=== PATIENT | male | born 1970 | race Caucasian/White ===

== ENCOUNTER 2021-05-19 01:42 | Inpatient (IN) | payer OTHER ==
[~2021-05-19] VITALS: Ht 172.7 cm; Wt 63.5 kg
[2021-05-19] VITALS (8 sets, daily range): BP systolic 108–142; BP diastolic 63–77
[~2021-05-19 01:42] MED LIST: DAYPRO600 M1 PO; MEDROL DOSEPAK4 MG PO; PRILOSEC20 MG PO; ROBAXIN750 MG PO; VICODIN 500 MG-1 TAB PO
[2021-05-19 03:15] LABS: BASO % 0.5 % (0.0-1.0); HEMATOCRIT 45.9 % (42.0-52.0); LYMPH # 0.5 10*3/uL (1.3-4.4); LYMPH % 11.9 % (27.0-41.0); MEAN CORPUSCULAR HGB 29.6 pg (27.0-31.0); MEAN CORPUSCULAR HGB CONC 34.4 g/dl (33.0-37.0); MEAN PLATELET VOLUME 9.9 fl (9.6-12.3); MONO # 0.3 10*3/uL (0.1-1.0); MONO % 6.3 % (3.0-9.0); NEUT # 3.4 10*3/uL (2.3-7.9); NEUT % 80.1 % (47.0-73.0); PLATELET COUNT AUTOMATED 174 10*3/uL (130-400); RED BLOOD COUNT 5.34 10*6/uL (4.50-5.90); RED CELL DISTRI WIDTH 11.4 % (0-14.5); WHITE BLOOD COUNT 4.3 10*3/uL (4.8-10.8)
[2021-05-19 03:33] LABS: ALBUMIN 2.6 gm/dl (3.1-4.5); ALKALINE PHOSPHATASE 95 U/L (45-117); BUN 18 mg/dl (7-24); CHLORIDE 96 mmol/L (98-107); CPK 33 U/L (39-308); CREATININE 1.13 mg/dL (0.70-1.30); LDH 202 U/L (87-241); POTASSIUM 3.6 mmol/L (3.5-5.1); SGOT/AST 47 IU/L (3-35); SGPT/ALT 107 U/L (12-78); SODIUM 132 mmol/L (136-145)
[2021-05-19 03:34] LABS: TROPONIN I < 0.015 ng/ml (<0.045)
[2021-05-19] MEDS ORDERED: DECADRON6 M1 PO ×2 (10:53)
== END 2021-05-19 20:59 | disposition home or self-care (01) | DRG 177 ==
LOC: ED 01:42 → EDHOLD 05:18
PROVIDERS: Emergency Medicine; ADMIT Internal Medicine; ATTEND Internal Medicine
DX: U07.1 COVID-19 (principal); J12.82 Pneumonia due to coronavirus disease 2019; J96.01 Acute respiratory failure with hypoxia; E87.1 Hypo-osmolality and hyponatremia; E44.0 Moderate protein-calorie malnutrition; R74.01 Elevation of levels of liver transaminase levels; Z87.891 Personal history of nicotine dependence; Z79.899 Other long term (current) drug therapy

== ENCOUNTER 2021-05-23 14:49 | Emergency (ER) | payer SELFPAY ==
[~2021-05-23 14:49] MED LIST changes: +DECADRON6 M1 PO
== END 2021-05-23 18:12 | disposition left against medical advice (07) ==
LOC: ED 14:49
DX: R11.0 Nausea (principal); R53.83 Other fatigue; Z53.21 Procedure and treatment not carried out due to patient leaving prior to being seen by health care provider

== ENCOUNTER 2021-05-25 16:25 | Emergency (ER) | payer SELFPAY ==
[~2021-05-25] VITALS: Ht 172.7 cm; Wt 72.6 kg
[2021-05-25 17:24] LABS: HEMATOCRIT 51.3 % (42.0-52.0); MEAN CELL VOLUME 83.3 fl (80.0-94.0); MEAN CORPUSCULAR HGB 29.2 pg (27.0-31.0); MEAN CORPUSCULAR HGB CONC 35.1 g/dl (33.0-37.0); MEAN PLATELET VOLUME 8.8 fl (9.6-12.3); PLATELET COUNT AUTOMATED 473 10*3/uL (130-400); RED BLOOD COUNT 6.16 10*6/uL (4.50-5.90); RED CELL DISTRI WIDTH 11.8 % (0-14.5); WHITE BLOOD COUNT 6.4 10*3/uL (4.8-10.8)
[2021-05-25 17:37] LABS: ACT PARTIAL THROMBO TIME 27.2 SECONDS (20.0-32.1)
[2021-05-25 17:40] LABS: ALBUMIN 2.8 gm/dl (3.1-4.5); ALKALINE PHOSPHATASE 119 U/L (45-117); BUN 12 mg/dl (7-24); CHLORIDE 104 mmol/L (98-107); CREATININE 0.66 mg/dL (0.70-1.30); LIPASE 118 U/L (73-393); POTASSIUM 3.5 mmol/L (3.5-5.1); SGOT/AST 12 IU/L (3-35); SGPT/ALT 81 U/L (12-78); SODIUM 136 mmol/L (136-145); TOTAL PROTEIN 7.9 gm/dL (6.4-8.2); TROPONIN I < 0.015 ng/ml (<0.045)
[2021-05-25 17:45] LABS: ATYPICAL LYMPHS 2 % (0-0); TOTAL CELLS COUNTED 100 #CELLS
[2021-05-25 17:46] LABS: BURR CELLS FEW; PLATELET SUFFICIENCY HIGH (NORMAL)
[2021-05-25 17:47] LABS: POLYCHROMASIA SLIGHT
== END 2021-05-25 21:03 | disposition home or self-care (01) ==
LOC: ED 16:25
PROVIDERS: Emergency Medicine
DX: U07.1 COVID-19 (principal); J12.82 Pneumonia due to coronavirus disease 2019; E88.09 Other disorders of plasma-protein metabolism, not elsewhere classified; R79.89 Other specified abnormal findings of blood chemistry

== ENCOUNTER 2021-05-26 19:16 | Inpatient (IN) | payer SELFPAY ==
[~2021-05-26] VITALS: Ht 172.7 cm; Wt 66.0 kg
[2021-05-26] VITALS: BP 134/68
[2021-05-26 19:16] VITALS: BP 137/93
[2021-05-26 19:47] LABS: BASO % 0.5 % (0.0-1.0); EOS % 0.4 % (1.0-4.0); HEMATOCRIT 53.6 % (42.0-52.0); LYMPH # 0.8 10*3/uL (1.3-4.4); LYMPH % 10.4 % (27.0-41.0); MEAN CELL VOLUME 84.1 fl (80.0-94.0); MEAN CORPUSCULAR HGB 29.4 pg (27.0-31.0); MEAN CORPUSCULAR HGB CONC 34.9 g/dl (33.0-37.0); MEAN PLATELET VOLUME 8.9 fl (9.6-12.3); MONO # 0.6 10*3/uL (0.1-1.0); MONO % 8.1 % (3.0-9.0); NEUT # 5.9 10*3/uL (2.3-7.9); NEUT % 78.4 % (47.0-73.0); PLATELET COUNT AUTOMATED 475 10*3/uL (130-400); RED BLOOD COUNT 6.37 10*6/uL (4.50-5.90); WHITE BLOOD COUNT 7.6 10*3/uL (4.8-10.8)
[2021-05-26 19:58] LABS: BUN 21 mg/dl (7-24); CHLORIDE 104 mmol/L (98-107); CREATININE 0.81 mg/dL (0.70-1.30); POTASSIUM 3.9 mmol/L (3.5-5.1); SODIUM 137 mmol/L (136-145)
[2021-05-26 20:00] VITALS: BP 134/68
[2021-05-26 22:31] LABS: BILIRUBIN Negative (Negative); BLOOD Negative (Negative); CLARITY Clear (Clear); COLOR Yellow (Yellow); GLUCOSE Negative (Negative); KETONE 1+ (Negative); LEUKO ESTERASE Negative (Negative); NITRITE Negative (Negative); PH 5.5 (4.5-8.0); SPECIFIC GRAVITY 1.025 (1.001-1.030)
[2021-05-26 23:30] VITALS: BP 131/92
[2021-05-26 23:30] LABS: WBC 0-2 wbc/hpf (0-5)
[2021-05-27 03:13] VITALS: BP 135/86
[2021-05-27 06:20] VITALS: BP 125/78
[2021-05-27 07:17] LABS: URINE AMPHETAMINES < 1000 (1000ng/ml); URINE BARBITURATES < 200 (200ng/ml); URINE BENZODIAZEPINES < 200 (200ng/ml); URINE CANNABINOIDS (THC) < 50 (50ng/ml); URINE COCAINE < 300 (300ng/ml); URINE METHADONE < 300 (300ng/ml); URINE OPIATES < 300 (300ng/ml)
[2021-05-27 07:19] LABS: URINE PHENCYCLIDINE < 25 (25ng/ml)
[2021-05-27 09:04] LABS: ALBUMIN 2.7 gm/dl (3.1-4.5); ALKALINE PHOSPHATASE 112 U/L (45-117); TOTAL PROTEIN 8.1 gm/dL (6.4-8.2)
[2021-05-27 09:13] LABS: SGPT/ALT 80 U/L (12-78)
[2021-05-27 09:14] LABS: SGOT/AST 86 IU/L (3-35)
[2021-05-27 10:01] VITALS: BP 121/77
[2021-05-27 17:32] VITALS: BP 105/64
[2021-05-27 19:32] VITALS: BP 98/66
[2021-05-28] VITALS (8 sets, daily range): BP systolic 96–134; BP diastolic 60–77
[2021-05-28 06:13] LABS: ALBUMIN 2.5 gm/dl (3.1-4.5); BUN 27 mg/dl (7-24); CHLORIDE 106 mmol/L (98-107); POTASSIUM 3.7 mmol/L (3.5-5.1); SODIUM 141 mmol/L (136-145)
[2021-05-28 06:21] LABS: ALKALINE PHOSPHATASE 99 U/L (45-117); CHOLESTEROL 172 mg/dL (<200); CREATININE 0.99 mg/dL (0.70-1.30); FREE T4 1.21 ng/dl (0.76-1.46); LDL CHOLESTEROL 111 mg/dL (9-159); SGOT/AST 16 IU/L (3-35); SGPT/ALT 67 U/L (12-78); TOTAL PROTEIN 6.7 gm/dL (6.4-8.2); TRIGLYCERIDES 141 mg/dl (<150)
[2021-05-28 06:59] LABS: BASO % 0.4 % (0.0-1.0); EOS # 0.1 10*3/uL (0.0-0.4); EOS % 1.6 % (1.0-4.0); HEMATOCRIT 50.7 % (42.0-52.0); LYMPH # 1.1 10*3/uL (1.3-4.4); LYMPH % 15.3 % (27.0-41.0); MEAN CORPUSCULAR HGB 29.5 pg (27.0-31.0); MEAN CORPUSCULAR HGB CONC 33.1 g/dl (33.0-37.0); MEAN PLATELET VOLUME 9.2 fl (9.6-12.3); MONO # 0.8 10*3/uL (0.1-1.0); MONO % 11.8 % (3.0-9.0); NEUT # 4.7 10*3/uL (2.3-7.9); NEUT % 69.2 % (47.0-73.0); PLATELET COUNT AUTOMATED 359 10*3/uL (130-400); RED CELL DISTRI WIDTH 12.2 % (0-14.5); WHITE BLOOD COUNT 6.9 10*3/uL (4.8-10.8)
[2021-05-28 07:04] LABS: MEAN CELL VOLUME 88.9 fl (80.0-94.0)
[2021-05-28 07:26] LABS: VITAMIN D, 25-HYDROXY 49.3 ng/mL (30-100)
[2021-05-29] VITALS: BP 134/68
[2021-05-29] MEDS ORDERED: NEXIUM20 M1 PO (00:27)
[2021-05-29 06:27] LABS: BASO % 0.8 % (0.0-1.0); EOS # 0.1 10*3/uL (0.0-0.4); EOS % 1.9 % (1.0-4.0); HEMATOCRIT 42.1 % (42.0-52.0); LYMPH # 1.2 10*3/uL (1.3-4.4); LYMPH % 24.5 % (27.0-41.0); MEAN CELL VOLUME 87.3 fl (80.0-94.0); MEAN CORPUSCULAR HGB 29.5 pg (27.0-31.0); MEAN CORPUSCULAR HGB CONC 33.7 g/dl (33.0-37.0); MEAN PLATELET VOLUME 9.2 fl (9.6-12.3); MONO # 0.7 10*3/uL (0.1-1.0); MONO % 14.3 % (3.0-9.0); NEUT # 2.7 10*3/uL (2.3-7.9); NEUT % 56.8 % (47.0-73.0); PLATELET COUNT AUTOMATED 269 10*3/uL (130-400); RED BLOOD COUNT 4.82 10*6/uL (4.50-5.90); RED CELL DISTRI WIDTH 11.9 % (0-14.5); WHITE BLOOD COUNT 4.8 10*3/uL (4.8-10.8)
[2021-05-29 06:47] LABS: ALBUMIN 2.3 gm/dl (3.1-4.5); ALKALINE PHOSPHATASE 88 U/L (45-117); BUN 21 mg/dl (7-24); CHLORIDE 105 mmol/L (98-107); CREATININE 0.83 mg/dL (0.70-1.30); POTASSIUM 3.3 mmol/L (3.5-5.1); SGOT/AST 12 IU/L (3-35); SGPT/ALT 50 U/L (12-78); SODIUM 137 mmol/L (136-145); TOTAL PROTEIN 5.7 gm/dL (6.4-8.2)
[2021-05-29 08:00] VITALS: BP 101/67
[2021-05-29 11:06] LABS: HEP B CORE AB, IGM Negative (Negative); HEPATITIS B SURFACE AG Negative (Negative); HEPATITIS C VIRUS ANTIBODY 0.2 s/co (0.0-0.9)
[2021-05-29 12:00] VITALS: BP 114/63
[2021-05-29 16:00] VITALS: BP 126/70
[2021-05-29 20:00] VITALS: BP 116/61
[2021-05-30] VITALS: BP 110/58
[2021-05-30 08:00] VITALS: BP 131/62
== END 2021-05-30 13:50 | disposition home or self-care (01) | DRG 177 ==
LOC: ED 19:16 → EDHOLD 05-27 10:15 → 4E 05-28 19:21
PROVIDERS: Emergency Medicine; Family Medicine; Internal Medicine; Student in an Organized Health Care Education/Training Program; ADMIT Internal Medicine; ATTEND Internal Medicine
DX: U07.1 COVID-19 (principal); G93.41 Metabolic encephalopathy; J96.01 Acute respiratory failure with hypoxia; E44.0 Moderate protein-calorie malnutrition; F10.239 Alcohol dependence with withdrawal, unspecified; D75.1 Secondary polycythemia; R73.9 Hyperglycemia, unspecified; E80.6 Other disorders of bilirubin metabolism; K70.10 Alcoholic hepatitis without ascites; E87.6 Hypokalemia; Y90.9 Presence of alcohol in blood, level not specified; Z68.21 Body mass index [BMI] 21.0-21.9, adult